=== PATIENT | female | born 1950 | race Caucasian/White ===

== ENCOUNTER 2016-11-14 21:48 | Emergency (ER) | payer MEDICARE, OTHER ==
[~2016-11-14] VITALS: Ht 167.6 cm; Wt 59.0 kg
--- NOTE | 2016-11-14 22:00 | NUR ---
To bed 4 a 66 yo female bb self; right foot/ ankle pain s/p "missed stepped on stairs." Patient also complaining of headache and reported to have taken norco 10/325 last dose at 1500 today. R foot/ankle noted with swelling, intact distal cms, patient was able to ambulate to bed. Encouraged rest on area. vss. nad noted. Comfort measures rendered. awaiting for er md salvador.
--- NOTE | 2016-11-14 23:03 | NUR ---
DR BATRES AT BEDSIDE TO EVAL.
[2016-11-14] MEDS ORDERED: HYDROCODONE/APAP 5/325MG 1 EACH TABLET ONE (23:07)
[2016-11-14] MEDS ORDERED: HYDROCODONE/APAP 5/325MG 1 EACH TABLET PO ONE (23:30)
--- NOTE | 2016-11-15 01:31 | NUR ---
Patient discharged to home in stable condition. Written and verbal after care instructions given. Patient verbalizes understanding of instruction. Patient successfully demonstrated use of walker with cast on the right lower leg. Distal cms is intact after application of split. No further complaints.
[2016-11-15 01:33] VITALS: BP 146/69
== END 2016-11-15 01:37 | disposition home or self-care (01) ==
LOC: ER 21:49
DX: S92.351A Displaced fracture of fifth metatarsal bone, right foot, initial encounter for closed fracture (principal); F32.9 Major depressive disorder, single episode, unspecified; E11.9 Type 2 diabetes mellitus without complications; Z88.8 Allergy status to other drugs, medicaments and biological substances; W22.8XXA Striking against or struck by other objects, initial encounter; Y93.89 Activity, other specified; Y92.89 Other specified places as the place of occurrence of the external cause; Y99.9 Unspecified external cause status
CPT/HCPCS: 73610-TC; 73630-TC; A4606; Z7610